=== PATIENT | male | born 1945 | race Hispanic/Latino ===

== ENCOUNTER 2017-04-11 16:48 | Outpatient (CLI) | payer MEDICARE ==
[2017-04-11 18:09] LABS: #Lymphocytes 1.5 thou/uL (1.20-3.40); #Monocytes 0.4 thou/uL (0.11-0.59); #Neutrophils 4.3 thou/uL (1.40-6.50); %Basophils 0.3 % (0.0-1.0); %Eosinophils 0.2 % (0.0-10.0); %Lymphocytes 23.2 % (21.0-51.0); %Monocytes 6.7 % (0.0-10.0); Hematocrit 50.7 % (42.0-52.0); Mean Platelet Volume 7.7 fL (7.4-10.4); Red Blood Cell (RBC) Count 5.33 mill/uL (4.70-6.10); White Blood Cell (WBC) Count 6.3 thou/uL (4.8-10.8)
[2017-04-11 18:31] LABS: Anion Gap 11 mmol/L (10-20); BUN (Urea Nitrogen) 12 mg/dL (8.4-25.7); Calc. Creatinine Clearance 0 mL/min (70-130); Calcium 9.2 mg/dL (7.8-10.44); Carbon Dioxide 28 mmol/L (23-31); Chloride 107 mmol/L (98-107); Estimated GFR-MDRD 85
== END 2017-04-11 16:49 | disposition home or self-care (01) ==
LOC: LABBT 16:48
PROVIDERS: ATTEND Specialist
DX: Z01.818 Encounter for other preprocedural examination (principal); K40.20 Bilateral inguinal hernia, without obstruction or gangrene, not specified as recurrent
CPT/HCPCS: 80048; 85025; 93005; 93010

== ENCOUNTER 2017-04-26 05:52 | Day surgery (SDC) | payer MEDICARE ==
[2017-04-11 18:10] VITALS: BMI 24.7
[2017-04-26] MEDS ORDERED: Bupivacaine 0.25% HCL 30 ML VIAL ONE (06:28)
[2017-04-26] MEDS ORDERED: Lidocaine 2% w/Epinephrine 1:200K 20 ML VIAL ONE (06:28)
[2017-04-26] MEDS ORDERED: Fentanyl 250 MCG/5 ML VIAL ONE (06:55)
[2017-04-26] MEDS ORDERED: Ketorolac Tromethamine 30 MG/ML VIAL ONE (07:10)
[2017-04-26] MEDS ORDERED: Ondansetron HCl/PF 4 MG/2 ML Vial ONE (07:37)
[2017-04-26] MEDS ORDERED: ePHEDrine/0.9% NaCl/PF SYRINGE 50 mg/10 ml ONE (07:37)
[2017-04-26] MEDS ORDERED: PHENYLEPHRINE-NS 100 MCG/ML 10 ML SYRINGE ONE (07:37)
[2017-04-26] MEDS ORDERED: Lidocaine 1% PF 5 ML VIAL ONE (07:37)
[2017-04-26] MEDS ORDERED: Glycopyrrolate 0.2 MG/ML 5 ML SYRINGE ONE (07:37)
[2017-04-26] MEDS ORDERED: Propofol 200 MG/20 ML VIAL ONE (07:37)
--- NOTE | 2017-04-27 09:55 | OP ---
DATE OF OPERATION: 04/26/2017 PREOPERATIVE DIAGNOSIS: Bilateral inguinal hernia. POSTOPERATIVE DIAGNOSIS: Bilateral inguinal hernia, direct. OPERATION PERFORMED: Robotic bilateral inguinal hernia repair with mesh, using large 3DMax mesh pat ches on each side. Standard weight patch was used on the left, while a lightweight patch was used o n the right. DESCRIPTION OF OPERATION: Informed consent was obtained. The patient was taken to the operating ro om where general endotracheal anesthesia was obtained with the patient in supine position. Abdomen was prepped with ChloraPrep and draped in sterile fashion. Grover catheter was placed. A 12-mm supr aumbilical incision was created through which a Veress needle was passed into the peritoneal cavity and pneumoperitoneum established using carbon dioxide up to a pressure of 15 mmHg. A 12-mm trocar p ort was passed through this same incision. Laparoscopic camera was passed through this port. Under direct vision, 2 additional 8-mm robotic ports were placed, one on either side of midline in the up per abdomen. The robot was docked to the 3 ports as well as to the camera and operation was continu ed from the robotic console. Examination within the pelvis revealed that there were bilateral good sized direct inguinal hernias. Operation was begun on the left. A transverse peritoneal incision was created several centimeters superior to the hernia defect. Preperitoneal dissection was carried inferiorly. To the medial asp ect, the pubic tubercle and Kyle's ligament was cleared. The peritoneum was dissected away from t he direct defect and the hernia contents were all reduced. These appeared to largely be a large vol ume of preperitoneal fat. The cord was cleared and the bifurcation with the vas deferens was cleare d as well. The preperitoneal dissection was continued laterally to allow position for the mesh. A large 3DMax patch was obtained and positioned within the preperitoneal space. This was standard heidi ght mesh patch. This fit nicely into the space and was sutured in place with 4 interrupted sutures of 2-0 Vicryl. One of these was positioned on the pubic tubercle, two were positioned on the anteri or aspect of the mesh, one on either side of the epigastric vessels. There was excellent coverage o joan the direct hernia defect. A final suture was placed laterally at the lateral tail of the hernia , but superior to the iliopubic tract. Attention was then turned to the right side. A mirror image incision and dissection was carried out and almost identical hernia was found on the right and a similar operation was performed. The mesh patch used on the right; however, with a lightweight 3DMax mesh patch. This was also secured with 4 interrupted sutures of Vicryl. The peritoneum was closed on each side with a running suture of 3-0 Stratafix with excellent closure of the peritoneum. The fascial defect at the 12 mm port site was closed with 0 Vicryl suture using a GraNee needle. Al l ports and instruments were removed under direct vision. Pneumoperitoneum was carefully evacuated. Quarter percent Marcaine with epinephrine was infiltrated in each port site. Skin edges approxima venancio with 4-0 Monocryl subcuticular suture. Dermabond was placed externally. There were no complica tions. The patient tolerated the procedure well and was taken to recovery room in stable condition.
== END 2017-04-26 15:38 | disposition home or self-care (01) ==
LOC: SDC 05:52
PROVIDERS: ATTEND Specialist
PROC: 0YUA4JZ Supplement Bilateral Inguinal Region with Synthetic Substitute, Percutaneous Endoscopic Approach (ICD-10-PCS; principal; 2017-04-26)
DX: K40.20 Bilateral inguinal hernia, without obstruction or gangrene, not specified as recurrent (principal); K21.9 Gastro-esophageal reflux disease without esophagitis; N40.0 Benign prostatic hyperplasia without lower urinary tract symptoms; J30.2 Other seasonal allergic rhinitis; Z79.51 Long term (current) use of inhaled steroids; Z79.899 Other long term (current) drug therapy; Z90.49 Acquired absence of other specified parts of digestive tract; Z98.890 Other specified postprocedural states
CPT/HCPCS: 49650; C1781; J0131; J1885; J2001; J2405; J2704; J3010; S0020

== ENCOUNTER 2018-03-13 08:31 | Outpatient (CLI) | payer MEDICARE ==
[2018-03-13 09:03] LABS: Estimated GFR-MDRD - POC Greater than 90
--- NOTE | 2018-03-13 13:26 | MRI ---
MRI PROSTATE WITHOUT AND WITH CONTRAST: Date: 03/13/18 HISTORY: Elevated PSA. Patient had a biopsy that was negative at the beginning of the year. TECHNIQUE: Multiplanar, multisequence MR images were obtained of the prostate without and with contrast. FINDINGS: There is moderate to severe hyperplasia of the central gland consistent with BPH. The peripheral zone of the prostate is fairly small compared to the size of the prostate. No suspicious lesions are seen in the peripheral zone. No restricted diffusion or low signal is seen on the ADC map within a periph eral zone. No suspicious nodules are seen in the central gland. The seminal vesicles are intact. The neurovascular bundles are intact. No pelvic adenopathy is seen. No marrow signal abnormality is present. IMPRESSION: PI-RADS Category 1 - Very low likelihood that a clinically significant cancer is present. POS: MELISA
[2018-03-13] MEDS ORDERED: Gadobenate Dimeglumine 529 MG/1 ML (20ML VIAL) ONE (14:15)
== END 2018-03-13 08:32 | disposition home or self-care (01) ==
LOC: TBSIIMAG 08:31
PROVIDERS: ATTEND Urology
DX: R97.20 Elevated prostate specific antigen [PSA] (principal)
CPT/HCPCS: 72197; 82565; A9579